=== PATIENT | female | born 1995 | race Caucasian/White ===

== ENCOUNTER 2022-02-11 15:35 | Observation (INO) | payer OTHER ==
[~2022-02-11] VITALS: Ht 157.5 cm; Wt 96.2 kg
== END 2022-02-11 19:50 | disposition home or self-care (01) ==
LOC: SPU 15:35
PROVIDERS: ADMIT Obstetrics & Gynecology; ATTEND Obstetrics & Gynecology
DX: O36.8130 Decreased fetal movements, third trimester, not applicable or unspecified (principal); Z3A.35 35 weeks gestation of pregnancy
CPT/HCPCS: 76805; 81002; G0378

== ENCOUNTER 2022-03-10 06:27 | Inpatient (IN) | payer OTHER ==
[~2022-03-10] VITALS: Ht 157.5 cm; Wt 101.2 kg
[2022-03-10] MEDS ORDERED: LR 1,000 ML IV ONE (07:30)
[2022-03-10] MEDS ORDERED: CEFAZOLIN 2 GM IVPB PREMIX 50 ML IV ONE (07:30)
[2022-03-10 07:31] VITALS: BP_SYST 116
[2022-03-10] MEDS ORDERED: TERBUTALINE SULFATE 1 MG/ML VIAL ONE (07:45)
[2022-03-10 07:53] LABS: BASOPHILS % (AUTO) 0.3 % (0.0-2.0); EOSINOPHILS # (AUTO) 0.1 K/uL (0.0-0.4); EOSINOPHILS % (AUTO) 1.1 % (0.0-4.0); HEMATOCRIT 37.6 % (36-48); HEMOGLOBIN 12.6 g/dL (12.0-16.0); LYMPHOCYTES % (AUTO) 17.5 % (20.5-51.5); MEAN CORPUSCULAR HEMOGLOBIN 28 pg (27-31); MEAN CORPUSCULAR HGB CONC 34 % (32-36); MEAN CORPUSCULAR VOLUME 84 fL (79.0-98.0); MONOCYTES # (AUTO) 0.6 K/uL (0.0-1.0); MONOCYTES % (AUTO) 5.6 % (1.7-9.3); NEUTROPHILS # (AUTO) 8.6 K/uL (1.8-7.7); NEUTROPHILS % (AUTO) 75.5 % (40.0-70.0); PLATELET COUNT (AUTO) 278 K/uL (130-430); WHITE BLOOD COUNT (AUTO) 11.4 K/uL (4.8-10.8)
[2022-03-10] MEDS ORDERED: VASOPRESSIN 20 UNITS/ML VIAL IV ONE (08:15)
[2022-03-10] MEDS ORDERED: ONDANSETRON HCL 4 MG/2 ML VIAL IVP ONE (08:15)
[2022-03-10] MEDS ORDERED: DEXAMETHASONE SOD PHOSPHATE 4 MG/ML VIAL IVP ONE (08:15)
[2022-03-10] MEDS ORDERED: LR 1,000 ML IV.SOLN IV ONE (08:15)
[2022-03-10] MEDS ORDERED: MORPHINE SULFATE 10MG/10ML PF AMP EP ONE (08:15)
[2022-03-10] MEDS ORDERED: BUPIVACAINE /DEX PF 0.75% SPINAL 2 ML AMP INJ ONE (08:15)
[2022-03-10] MEDS ORDERED: METHYLERGONOVINE MALEATE 0.2 MG/ML AMP IM ONE (08:15)
[2022-03-10] MEDS ORDERED: NS IRRIG SOLN 1000 ML IR ONE (08:15)
[2022-03-10] MEDS ORDERED: METHYLERGONOVINE MALEATE 0.2 MG/ML AMP ONE (09:01)
[2022-03-10] MEDS ORDERED: DIPHENHYDRAMINE INJ 50 MG/ML VIAL IVP PRN (09:30)
[2022-03-10] MEDS ORDERED: ONDANSETRON HCL 4 MG/2 ML VIAL IVP PRN ×2 (09:30)
[2022-03-10] MEDS ORDERED: METOCLOPRAMIDE HCL 10 MG/2 ML VIAL IVP PRN (09:30)
[2022-03-10] MEDS ORDERED: NALOXONE HCL 0.4 MG/ML AMP (NARCAN) IVP PRN ×2 (09:30)
[2022-03-10] MEDS ORDERED: MORPHINE SULFATE 10MG/10ML PF AMP SP SCH (09:30)
[2022-03-10] MEDS ORDERED: MEPERIDINE HCL/PF 25 MG/ML DISP.SYRIN IVP PRN (09:30)
[2022-03-10] MEDS ORDERED: HYDROmorphone 1 MG/ML INJ. CARTRIDGE IVP PRN (09:30)
[2022-03-10] MEDS ORDERED: LANOLIN 7 GM OINT. TP PRN (11:30)
[2022-03-10] MEDS ORDERED: OXYTOCIN/0.9 % SODIUM CHLORIDE 1,000 ML IV ONE (11:30)
[2022-03-10] MEDS ORDERED: TERBUTALINE SULFATE 1 MG/ML VIAL SUBCUT ONE (11:30)
[2022-03-10 11:45] VITALS: BP_SYST 127
[2022-03-10] MEDS: SIMETHICONE 80 MG TAB.CHEW PO PRN ×2 (16:01→20:36)
[2022-03-10] MEDS ORDERED: TEMAZEPAM 15 MG CAPSULE PO PRN (21:00)
[2022-03-11] MEDS: IBUPROFEN 600 MG TABLET PO SCH ×4 (00:06→18:04)
[2022-03-11] MEDS: OXYCODONE/ACETAMINOPHEN 5-325 TABLET PO PRN ×3 (00:17→20:27)
[2022-03-11] MEDS ORDERED: HYDROcodone/ACETAMIN 5-325 MG TAB (NORCO/ VICODIN) PO PRN (03:00)
[2022-03-11] MEDS: SIMETHICONE 80 MG TAB.CHEW PO PRN ×3 (06:15→18:03)
[2022-03-11 08:09] LABS: BASOPHILS % (AUTO) 0.1 % (0.0-2.0); EOSINOPHILS # (AUTO) 0.1 K/uL (0.0-0.4); EOSINOPHILS % (AUTO) 0.3 % (0.0-4.0); HEMATOCRIT 28.6 % (36-48); HEMOGLOBIN 9.7 g/dL (12.0-16.0); LYMPHOCYTES # (AUTO) 3.1 K/uL (1.0-5.5); LYMPHOCYTES % (AUTO) 18.2 % (20.5-51.5); MEAN CORPUSCULAR HEMOGLOBIN 28 pg (27-31); MEAN CORPUSCULAR HGB CONC 34 % (32-36); MEAN CORPUSCULAR VOLUME 83 fL (79.0-98.0); MONOCYTES # (AUTO) 1.1 K/uL (0.0-1.0); MONOCYTES % (AUTO) 6.7 % (1.7-9.3); NEUTROPHILS # (AUTO) 12.6 K/uL (1.8-7.7); NEUTROPHILS % (AUTO) 74.7 % (40.0-70.0); PLATELET COUNT (AUTO) 249 K/uL (130-430); RED BLOOD CELL COUNT(AUTO) 3.45 MIL/uL (4.2-6.2); RED CELL DISTRIBUTION WIDTH 15.9 % (9.0-15.0); WHITE BLOOD COUNT (AUTO) 16.9 K/uL (4.8-10.8)
[2022-03-11] MEDS: DOCUSATE SODIUM 100 MG CAPSULE PO SCH (18:03)
[2022-03-12] MEDS: IBUPROFEN 600 MG TABLET PO SCH ×5 (00:11→23:52)
[2022-03-12] MEDS: DOCUSATE SODIUM 100 MG CAPSULE PO SCH (21:17)
[2022-03-12] MEDS: OXYCODONE/ACETAMINOPHEN 5-325 TABLET PO PRN ×2 (21:17→23:52)
[2022-03-13] MEDS: OXYCODONE/ACETAMINOPHEN 5-325 TABLET PO PRN ×2 (03:17→06:31)
[2022-03-13] MEDS: IBUPROFEN 600 MG TABLET PO SCH ×2 (06:29→12:22)
[2022-03-13] MEDS: DOCUSATE SODIUM 100 MG CAPSULE PO SCH (09:07)
[2022-03-13] MEDS: SIMETHICONE 80 MG TAB.CHEW PO PRN ×2 (09:08→12:22)
== END 2022-03-13 13:15 | disposition home or self-care (01) | DRG 540 ==
LOC: OBSVTOIN 06:27 → SPU 06:27
PROVIDERS: ADMIT Obstetrics & Gynecology; ATTEND Obstetrics & Gynecology
PROC: 10D00Z1 Extraction of Products of Conception, Low, Open Approach (ICD-10-PCS; principal; 2022-03-10 08:34)
DX: O69.81X0 Labor and delivery complicated by cord around neck, without compression, not applicable or unspecified (principal); O76 Abnormality in fetal heart rate and rhythm complicating labor and delivery; Z3A.39 39 weeks gestation of pregnancy; Z20.822 Contact with and (suspected) exposure to COVID-19; Z37.0 Single live birth
CPT/HCPCS: 36415; 59899; 81002; 85025; 86592; 86886; 86900; 86901; 94760; J0690; J1100; J2210; J2274; J2405; J2590; J3105; J3490; J7120